=== PATIENT | female | born 1995 | race Two or more races ===

== ENCOUNTER 2018-04-26 17:33 | Emergency (ER) | payer SELFPAY ==
[2018-04-26 17:39] VITALS: RESP 18; TEMP 97.9; O2SAT 100
--- NOTE | 2018-04-26 18:29 | ED PDOC ---
Syncope/Near Syncope/Dizziness Time Seen by Provider: 04/26/18 18:13 Chief Complaint (Nursing): Syncope History Per: Other Onset/Duration Of Symptoms: Hrs (1) Current Symptoms Are (Timing): Better Additional Complaint(s): Brought by EMS after pt experienced possible syncopal episode. Was in classroom by herself and was later found to be walking on campus dazed and confused. Pt has no recollection of what happened while in classroom but c/o dizziness. Denies chest pain or palpitations. Does not have recollection of fall or injury. Also c/o right leg/knee pain earlier but none now. Past Medical History Vital Signs: Last Vital Signs Temp 97.9 F 04/26/18 17:35 Pulse 79 04/26/18 17:35 Resp 18 04/26/18 17:35 BP 135/78 04/26/18 17:35 Pulse Ox 100 04/26/18 17:35 - Medical History PMH: No Chronic Diseases - Surgical History Other surgeries: Ovarian cyst - Family History Family History: States: Unknown Family Hx - Home Medications Home Medications: Ambulatory Orders Medication Instructions Recorded No Known Home Med 04/26/18 - Allergies Allergies/Adverse Reactions: Allergies Allergy/AdvReac Type Severity Reaction Status Date / Time No Known Allergies Allergy Verified 04/26/18 17:35 Review of Systems ROS Statement: Except As Marked, All Systems Reviewed And Found Negative Neurological: Positive for: Dizziness Physical Exam - Reviewed Nursing Documentation Reviewed: Yes Vital Signs Reviewed: Yes - Physical Exam Appears: Positive for: Non-toxic, No Acute Distress Head Exam: Positive for: ATRAUMATIC, NORMAL INSPECTION, NORMOCEPHALIC Skin: Positive for: Normal Color, Warm, DRY Eye Exam: Positive for: EOMI, Normal appearance, PERRL ENT: Positive for: Normal ENT Inspection Neck: Positive for: Normal, Painless ROM Cardiovascular/Chest: Positive for: Regular Rate, Rhythm Respiratory: Positive for: CNT, Normal Breath Sounds Gastrointestinal/Abdominal: Positive for: Normal Exam, Soft Back: Positive for: Normal Inspection Extremity: Positive for: Normal ROM. Negative for: Tenderness, Calf Tenderness , Deformity, Swelling Neurologic/Psych: Positive for: Alert, Oriented - Laboratory Results Result Diagrams: 04/26/18 18:35 04/26/18 18:35 - ECG O2 Sat by Pulse Oximetry: 100 Medical Decision Making Medical Decision Making: Advised 24 hr obs for syncope, possible seizure. Pt does not wish to stay in hospital aware of risks including recurrent syncope or seizure and .. Referal given for outpt neuro. Advised to return to ED immediately if recurrence of sxs Disposition - Clinical Impression Clinical Impression: Syncope - Patient ED Disposition Is Patient to be Admitted: No Counseled Patient/Family Regarding: Studies Performed, Diagnosis, Need For Followup, Rx Given - Disposition Referrals: Kendra Florentino MD [Medical Doctor] - Disposition: Routine/Home Disposition Time: 20:19 Condition: FAIR Instructions: Syncope (Fainting) Forms: [employer] ([place]rian)
[2018-04-26 18:45] LABS: BASO % 0.5 % (0.0-2.0); EOS % 0.7 % (0.0-4.0); HEMOGLOBIN 11.2 g/dL (12.0-16.0); LYMPH # 1.9 K/uL (1.0-4.3); LYMPH % 25.5 % (20.0-40.0); MEAN CELL VOLUME 79.4 fl (81.0-99.0); MEAN CORPUSCULAR HEMOGLOBIN 25.8 pg (27.0-31.0); MEAN CORPUSCULAR HGB CONC 32.5 g/dL (33.0-37.0); MEAN PLATELET VOLUME 7.8 fl (7.2-11.7); MONO # 0.5 K/uL (0.0-0.8); MONO % 6.7 % (0.0-10.0); NEUT # 4.9 K/uL (1.8-7.0); NEUT % 66.6 % (50.0-75.0); RBC 4.36 Mil/uL (3.80-5.20); RED CELL DISTRIBUTION WIDTH 16.8 % (11.5-14.5); WHITE BLOOD COUNT 7.4 K/uL (4.8-10.8)
[2018-04-26 19:02] LABS: ALB/GLOB RATIO 1.4 (1.0-2.1); ALBUMIN 4.2 g/dL (3.5-5.0); ALT/SGPT 22 U/L (9-52); AST/SGOT 24 U/L (14-36); BLOOD UREA NITROGEN 10 mg/dl (7-17); CALCIUM 9.1 mg/dL (8.4-10.2); GFR AFRICAN-AMERICAN > 60; GFR NON-AFRICAN AMERICAN > 60
[2018-04-26 19:15] LABS: BARBITURATES, UR NEGATIVE (NEGATIVE); BENZODIAZEPINES, UR NEGATIVE (NEGATIVE); OPIATES, UR NEGATIVE (NEGATIVE); PHENCYCLIDINE, UR NEGATIVE (NEGATIVE)
[2018-04-26 20:26] VITALS: BP 116/66; PULSE 89
--- NOTE | 2018-04-27 07:19 | CT ---
Date of service: 04/26/2018 PROCEDURE: CT HEAD WITHOUT CONTRAST. HISTORY: syncope COMPARISON: None available. TECHNIQUE: Axial computed tomography images were obtained through the head/brain without intravenous contrast. Radiation dose: Total exam DLP = 820 mGy-cm. This CT exam was performed using one or more of the following dose reduction techniques: Automated exposure control, adjustment of the mA and/or kV according to patient size, and/or use of iterative reconstruction technique. FINDINGS: HEMORRHAGE: No intracranial hemorrhage. BRAIN: Mild volume loss. No mass effect or edema. No atrophy or chronic microvascular ischemic changes. VENTRICLES: Unremarkable. No hydrocephalus. CALVARIUM: Unremarkable. PARANASAL SINUSES: Polyp/mucous retention cyst noted in the right maxillary sinus. MASTOID AIR CELLS: Unremarkable as visualized. No inflammatory changes. OTHER FINDINGS: None. IMPRESSION: No acute intracranial abnormality. Additional findings as above. If symptoms persists, consider correlation with MRI. These findings were preliminarily reported at 7:09 p.m. on 04/26/[address] Rom Barbour from [facility].
--- NOTE | 2018-04-30 11:51 | CARD ---
APPROVED REPORT Date of service: 04/26/2018 EKG Measurement Heart [id number] <Conclusion> Normal sinus rhythm with sinus arrhythmia Normal ECG
== END 2018-04-26 20:36 | disposition home or self-care (01) ==
LOC: H.ER 17:33
DX: R55 Syncope and collapse (principal)
CPT/HCPCS: 70450; 80053; 81025; 82948; 85025; 85378; 93005; 99285; G0480